=== PATIENT | male | born 1970 | race Caucasian/White ===

== ENCOUNTER → 2018-09-25 16:21 | Outpatient (CLI) | payer OTHER, SELFPAY ==
[2018-09-25 18:17] LABS: Prostate Specific Antigen Scrn 3.19 ng/mL (0.1-4.0)
== END ==
PROVIDERS: PCP Family Medicine; Visit Provider Nurse Practitioner
DX: R39.15 Urgency of urination (principal); R15.9 Full incontinence of feces
CPT/HCPCS: 36415; G0103

== ENCOUNTER → 2018-09-26 12:35 | Outpatient (CLI) | payer OTHER, SELFPAY | PROVIDERS: PCP Family Medicine; Visit Provider Nurse Practitioner | DX: R15.2 Fecal urgency (principal); R15.9 Full incontinence of feces; R39.15 Urgency of urination | CPT/HCPCS: 87045; 87177; 87899 ==

== ENCOUNTER → 2018-12-27 08:50 | Outpatient (CLI) | payer OTHER, SELFPAY | PROVIDERS: PCP Family Medicine; Visit Provider Physician Assistant | DX: J02.9 Acute pharyngitis, unspecified (principal); J35.1 Hypertrophy of tonsils | CPT/HCPCS: 87070 ==

== ENCOUNTER → 2019-10-03 07:39 | Outpatient (CLI) | payer OTHER, SELFPAY ==
--- NOTE | 2019-10-03 07:41 | DI.US.S_ITS ---
PROCEDURE: US SOFT TISSUE HEAD AND NECK INDICATIONS: LEFT SUPRACLAVICULAR LUMP X 10 YEARS TECHNIQUE: Real-time scanning was performed of the neck region of interest, with image documentation. COMPARISON: None. FINDINGS: In the area of palpable abnormality left supraclavicular region there is a 3.1 x 0.5 x 2.5 cm isoechoic mass. No internal vascularity and this is located within the subcutaneous soft tissues. IMPRESSION: Subcutaneous isoechoic mass in the region of left supraclavicular palpable abnormality, statistically this represents lipoma although recommend clinical followup and management. Dictated by: Mynor Anna M.D. on 10/03/2019 at 11:05 Approved by: Mynor Anna M.D. on 10/03/2019 at 11:06
== END ==
PROVIDERS: PCP Family Medicine; Referring Provider Surgery; Visit Provider Surgery
DX: R22.2 Localized swelling, mass and lump, trunk (principal)
CPT/HCPCS: 76536

== ENCOUNTER → 2020-01-06 08:30 | Outpatient (CLI) | payer OTHER, SELFPAY ==
[2020-01-07 08:42] LABS: COVID19 Sendout Not Detected (Not Detect)
== END ==
PROVIDERS: PCP Family Medicine; Visit Provider Physician Assistant
DX: Z01.818 Encounter for other preprocedural examination (principal)
CPT/HCPCS: 87635

== ENCOUNTER 2020-01-09 08:04 | Day surgery (SDC) | payer OTHER, SELFPAY ==
[2020-01-04 10:46] VITALS: BMI 24.5
[2020-01-09] VITALS (8 sets, daily range): BP systolic 84–110; BP diastolic 43–72; PULSE 62–78; RESP 9–16; TEMP 36.7–37.1; O2SAT 90–99; BMI 23.6
--- NOTE | 2020-01-09 | PATH_ITS ---
[facility] Accession Number: [id number] . 01 Material submitted: . skin - LEFT SUPRACLAVICULAR . 01 Clinical history: . FATTY MASS . 01 Diagnosis: Left Supraclavicular, Excision: Mature adipose tissue consistent with lipoma. MRV 01/11/2020 1521 Local . 01 Electronically signed: . Candi Mojica MD, Dermatopathologist NPI- [id number] . 01 Gross description: . Received in formalin, labeled left supraclavicular fatty mass, is one piece of lew adipose tissue measuring 2.9 x 0.7 x 0.6 cm. The tissue is inked, serially sectioned into six slices, and entirely submitted in cassettes A1 and A2 with three slices per cassette. ([id number]) /[facility] 01/10/2020 0243 Local . 01 Pathologist provided ICD-10: D17.9 . 01 CPT . 514625 Performed at: [address] [facility] [address], [place], [place] [id number] MD Lokesh Gusman MD Phone: [phone]
[2020-01-09] MEDS: LACTATED RINGERS 1,000 ML 42 ML IV (08:33)
--- NOTE | 2020-01-09 09:03 | PM.HP.1 ---
History of Present Illness History of Present Illness Date Patient Seen: 01/09/20 Time Patient Seen: 09:03 Chief complaint: [id number] EXCISION OF L SUPRACLAVICULAR MASS Narrative: This is a 49-year-old man with history of active smoking, who comes in with complaint of left supraclavicular pain, and a mass which has been enlarging over time. He believes the mass has been there for several years, but he feels that recently it has been enlarging such that it is restricting his movement of his shoulder and left arm. He denies any draining, bleeding, erythema, or warmth associated with the mass. He denies any perform neuropathy in the left arm, or any edema. He was sent for an US which revealed a 3cm discrete mass c/w a lipoma. ROS Review of systems is positive for pain in the left supraclavicular region. Thirteen system review is otherwise negative other than as mentioned below and in HPI. PE: GENERAL: Well groomed and cooperative. Appears stated age. Answers questions promptly and appropriately. Vital signs noted. HENT: Normocephalic, atraumatic. Hearing intact. Oral mucosa is pink and moist. EYES: Conjunctiva pink, sclera white, no periorbital swelling. CARDIOVASCULAR: Regular rate. No pedal edema. RESPIRATORY: Non-tachypneic, breathing comfortably on room air. GASTROINTESTINAL: Abdomen soft and non-distended GENITALURINARY: No flank tenderness. MUSCULOSKELETAL: Equal tone and mass bilaterally. 2 cm x 3 cm x 2 cm soft, partially mobile mass in the left supraclavicular SKIN: Warm, dry, soft, appropriate color for ethnicity. No other lesions, rashes, or wounds. NEURO: Alert and Oriented X 3. No gross sensory deficits, or cognitive issues. PSYCH: Appropriate affect and mood. Patient History Medical History Infected cat bite (Resolved) Family & Social History Tobacco & Substance use: Tobacco type cigarettes Smoking Status Current some day smoker Smoking packs per day 1 alcohol intake current alcohol intake frequency 3 or more drinks per day Substance Use Type marijuana Meds Home Medications and Allergies Home Medications Medication Instructions Recorded Confirmed Type No Known Home Medications 01/09/20 01/09/20 History Allergies Allergy/AdvReac Type Severity Reaction Status Date / Time bee pollen [BEE POLLEN] Allergy Unknown Verified 01/09/20 08:14 Exam Vital Signs (past 8 hours): - 01/09/20 08:25 Temperature 98.8 F Pulse Rate 74 Respiratory Rate 16 Blood Pressure 108/68 Pulse Oximetry 95 Oxygen Delivery Method Room Air Objective Imaging US shoulder: Radiologist's impression: FINDINGS: In the area of palpable abnormality left supraclavicular region there is a 3.1 x 0.5 x 2.5 cm isoechoic mass. No internal vascularity and this is located within the subcutaneous soft tissues. IMPRESSION: Subcutaneous isoechoic mass in the region of left supraclavicular palpable abnormality, statistically this represents lipoma although recommend clinical followup and management. Assessment & Plan Assessment & Plan narrative: Risks and benefits of left supraclavicular mass excision were discussed including risk of bleeding, infection, damage to nearby structures, nerve or vascular injury, injury to lung, unable to excise the entire structure due to nerve or vascular involvement, need for additional procedures, scarring, ongoing symptoms. The patient desires to proceed with excision of the mass. COVID-19 COVID-19 status: Negative Result date/Date tested (Pos, Neg/Pending): 01/06/20 Time Spent With Patient Time with patient: 15-24 minutes Quality VTE Deep Vein Thrombosis/Pulmonary Embolism Present on Admission: No
[2020-01-09] MEDS: CEFAZOLIN 2 GM/100 ML FROZ.PIGGY IV (09:10)
--- NOTE | 2020-01-09 09:28 | SUR.OPER ---
Supine on padded OR bed, head on pillow, arms secured on padded arm boards at <90 degrees abduction, legs uncrossed, safety belt at thigh, tape over blanket over lower legs.
--- NOTE | 2020-01-09 09:48 | P.OP_ITS ---
Operative Date/Time/Diagnoses Date of procedure: 01/09/20 Time of procedure: 09:48 Pre-op diagnosis: left supraclavicular mass Post-op diagnosis: same Procedure & Clinicians Procedure: Excision of 3cm left supraclavicular mass attached to left EJ Same procedure as scheduled: Yes Indications: Left shoulder pain and mass of unknown malignant potential Surgeon: Carline Ruffin Operative Notes Findings: 3cm x 2cm x2cm fatty mass adherent to left EJ Specimen(s): other (fatty supraclavicular mass 3 x 2 x 2 cm) Estimated Blood Loss (mL): 1 Blood products transfused: none Procedure in detail: The patient was brought into the OR, placed supine on the OR table, and appropriate preoperative antibiotics were given. Sequential compression devices were placed on both legs and turned on. General anesthesia was induced and the patient was intubated with an LMA by the anesthesiologist. The left shoulder and neck were prepped and draped sterilely with betadine. Local anesthetic was infiltrated into the skin and a 15 blade was used to make a 2 cm incision overlying the mass in the supraclavicular fossa. Dissection was carried down through the dermis using cautery sparingly due to fire risk. Once I reached the fatty mass, I began dissected it out using a fine hemostat. Medially, the mass was adherent to the external jugular vein. This was gently dissected free, and a small branch going into the mass was ligated with a 3-0 Vicryl tie, and divided with good hemostasis. Once the mass was entirely freed, it was passed o ff the field. The wound was checked for hemostasis. There was no sign of active bleeding. The skin was then closed with interrpted 3-0 Vicryl and running 4-0 Monocryl subcuticular stitch. The skin edges were sealed with Dermabond. The patient was awakened from anesthesia and extubated. He tolerated the procedure well. Needle, sponge and instrument counts were correct x 2. The patient was transferred to PACU in stable condition. Complications: none Post-operative Condition: stable Disposition: PACU
--- NOTE | 2020-01-09 10:58 | SUR.PHASEII ---
Discussed all d/c instructions with daughter. Patient given no prescriptions. All belongings returned to patient. Home in stable condition.
== END 2020-01-09 10:59 | disposition home or self-care (01) ==
PROVIDERS: PCP Family Medicine; Referring Provider Family Medicine; Visit Provider Surgery
PROC: (CPT 23071; principal; 2020-01-09 09:15)
DX: D17.1 Benign lipomatous neoplasm of skin and subcutaneous tissue of trunk (principal); F17.210 Nicotine dependence, cigarettes, uncomplicated
CPT/HCPCS: 23071; J0690; J1100; J2405; J2704; J3010

== ENCOUNTER 2020-03-03 23:24 | Emergency (ER) | payer OTHER, SELFPAY ==
[2020-03-03 23:25] VITALS: BP 133/86; PULSE 68; RESP 16; TEMP 36.8; O2SAT 98; BMI 24.3
--- NOTE | 2020-03-03 23:26 | DI.RAD.S_ITS ---
PROCEDURE: XR SHOULDER RT MIN 2V INDICATIONS: possible dislocation TECHNIQUE: 3 views of the shoulder were acquired. COMPARISON: None. FINDINGS: No fracture. Slight superior subluxation of the lateral clavicle relative to the acromion measuring approximately 1/3 shaft width. No definite AC joint space widening. The coracoclavicular interval appears normal. Glenohumeral alignment appears intact. IMPRESSION: Superior subluxation of the lateral clavicle relative to the acromion as above suggestive of acromioclavicular separation. Of note the AC and CC intervals appear normal. Further evaluation with dedicated acromioclavicular radiographs with and without weights could be performed as clinically warranted. Dictated by: Mynor Anna M.D. on 03/04/2020 at 8:53 Approved by: Mynor Anna M.D. on 03/04/2020 at 9:03
--- NOTE | 2020-03-03 23:42 | ED_ITS ---
HPI - General Adult General Chief complaint: Extremity Injury, Upper Stated complaint: somnjose manuel right shoulder is dislocated Time Seen by Provider: 03/03/20 23:26 Source: patient Mode of arrival: Ambulatory Limitations: no limitations History of Present Illness HPI narrative: Otherwise healthy 49-year-old male here for evaluation of right shoulder injury. Patient states that he tripped and fell landing on his right shoulder. He states that he thinks that he dislocated his shoulder. Has never had an injury to this shoulder in the past. Has not tried anything for his symptoms prior to arrival. Reports no other injuries from the event. Related Data Home Medications Medication Instructions Recorded Confirmed No Known Home Medications 01/09/20 01/24/20 Allergies Allergy/AdvReac Type Severity Reaction Status Date / Time bee pollen [BEE POLLEN] Allergy Unknown Verified 01/24/20 09:04 Review of Systems Constitutional Constitutional: Denies headache(s) ENT Ears, Nose, Mouth, and Throat: Denies headache(s) Musculoskeletal Musculoskeletal: Denies tingling Comments: Right shoulder pain Integumentary/Breasts Skin/Breast: Denies rash Neurologic Neurologic: Denies headache(s) and Denies tingling Hematologic/Lymphatic Hematologic/Lymphatic: Denies easy bleeding and Denies easy bruising Patient History Medical History Infected cat bite (Resolved) Social History Smoking Status: Current every day smoker quit status: considering quitting alcohol intake: current substance use type: marijuana Smoking Status: Current every day smoker tobacco type: cigarettes alcohol intake frequency: 3 or more drinks per day Alcohol type: beer Substance Use Type: does not use Exam Initial Vital Signs Initial Vital Signs: Vital Signs Temperature 98.3 F 03/03/20 23:25 Pulse Rate 68 03/03/20 23:25 Respiratory Rate 16 03/03/20 23:25 Blood Pressure 133/86 03/03/20 23:25 Pulse Oximetry 98 03/03/20 23:25 Const General: cooperative and comfortable Limitations: mental status not altered [facility] Head: normal to inspection and normocephalic Skin Lesions: no lesions Rashes: no rashes Neuro General: patient alert and patient awake Sensory Exam: no sensory deficits noted Extrem Other: Tenderness to palpation of the AC joint on the right. Right wrist right elbow right forearm right upper arm unremarkable. Patient can touch his left shoulder with his right hand. Can abduct and adduct his right shoulder. Psych Appearance: grossly normal and well kempt Course Orders Ordered: ED Orders 03/03/20 23:26 XR shoulder RT min 2V Stat Vital Signs Vital signs: Vital Signs - 8 hr 03/03/20 23:25 03/03/20 23:51 Temperature 98.3 F Pulse Rate 68 88 Respiratory Rate 16 14 Blood Pressure 133/86 127/83 Pulse Oximetry 98 100 Medical Decision Making Imaging Data Extremity x-ray #1: Attestation: I personally reviewed and interpreted this imaging study as follows: My Impression: Right AC separation, no fractures, no dislocation MDM Narrative Medical decision making narrative: Patient is neurovascularly intact. X-ray showed no dislocation or fracture. His exam and the x-rays are consistent with an AC separation. Attempted to discuss this with the patient do I think was reluctant to accept the fact that his shoulder was not dislocated however he was able to move his shoulder in a way that would make this extremely unlikely. Patient declined the offer for a sling. We did discuss ice and anti- inflammatories. Informed him that he needed to talk with his primary doctor about a referral to see physical therapy. He expressed understanding and agreement. Discharge Plan Departure Patient Disposition: Home Clinical Impression: Shoulder separation Discharge Date/Time: 03/03/20 23:51 Instructions: AC Joint Separation Activity Restrictions/Additional Instructions: Your shoulder is not dislocated. There were no fractures on the x-rays. You have what his called a shoulder. You have no restrictions on your activities. You can ice your shoulder as needed. Recommend that you contact your primary provider to discuss physical therapy. Return to the emergency department for any new or worsening symptoms Prescriptions: No Action No Known Home Medications RF: 0 Referrals: Cynthia Reyes MD [Primary Care Provider] -
[2020-03-03 23:51] VITALS: BP 127/83; PULSE 88; RESP 14; O2SAT 100
== END 2020-03-03 23:51 | disposition home or self-care (01) ==
PROVIDERS: Emergency Provider Emergency Medicine; PCP Family Medicine
DX: S43.006A Unspecified dislocation of unspecified shoulder joint, initial encounter (principal); W19.XXXA Unspecified fall, initial encounter
CPT/HCPCS: 73030; 99281; 99283

== ENCOUNTER → 2020-11-26 14:31 | Outpatient (CLI) | payer OTHER, SELFPAY ==
--- NOTE | 2020-11-26 | DI.RAD.S_ITS ---
PROCEDURE: XR KNEE RT 3V INDICATIONS: RIGHT KNEE PAIN TECHNIQUE: 3 views of the knee were acquired. COMPARISON: [facility], , KNEE 3V LEFT, 09/08/2007, 10:37. FINDINGS: Bones: No fractures or dislocations. No suspicious bony lesions. Soft tissues: No joint effusion. No suspicious soft tissue calcifications. IMPRESSION: Normal for age, source of current knee pain symptoms is not seen. Dictated by: Khris Lindsey M.D. on 11/26/2020 at 15:55 Approved by: Khris Lindsey M.D. on 11/26/2020 at 15:55
== END ==
PROVIDERS: PCP Family Medicine; Referring Provider Family Medicine; Visit Provider Family Medicine
DX: M25.561 Pain in right knee (principal)
CPT/HCPCS: 73562

== ENCOUNTER 2023-04-03 13:26 | Emergency (ER) | payer OTHER, SELFPAY ==
[2023-04-03] VITALS (16 sets, daily range): BP systolic 110–139; BP diastolic 70–83; PULSE 58–110; RESP 18–56; TEMP 36.5–36.7; O2SAT 90–97; BMI 24.7
--- NOTE | 2023-04-03 13:33 | DI.CT.S_ITS ---
PROCEDURE: CT HEAD/BRAIN WO CON INDICATIONS: fall TECHNIQUE: Noncontrast 4.5 mm thick angled axial sections acquired from the foramen magnum to the vertex, with coronal and sagittal reformats. For radiation dose reduction, the following was used: automated exposure control, adjustment of mA and/or kV according to patient size. COMPARISON: None. FINDINGS: Image quality: Excellent. CSF spaces: Basal cisterns are patent. No extra-axial fluid collections. Ventricles are normal in size and shape. Brain: No midline shift. No intracranial masses or hemorrhage. Rodriguez-white matter interface is normal. Skull and face: Calvarium and visualized facial bones are intact, without suspicious lesions. Sinuses: Visualized sinuses and mastoids are clear. IMPRESSION: No acute intracranial abnormality. Dictated by: Arpit Peterson M.D. on 04/03/2023 at 14:02 Approved by: Arpit Peterson M.D. on 04/03/2023 at 14:03
--- NOTE | 2023-04-03 13:33 | DI.CT.S_ITS ---
PROCEDURE: CT CERVICAL SPINE WO CON INDICATIONS: trauma TECHNIQUE: Noncontrast 3 mm thick sections acquired from the skull base to the T4 level. Sagittal and coronal reformats were then constructed. For radiation dose reduction, the following was used: automated exposure control, adjustment of mA and/or kV according to patient size. COMPARISON: None. FINDINGS: Image quality: Excellent. Bones: No fractures or dislocations. Visualized superior ribs are intact. Soft tissues: Prevertebral soft tissues are normal in thickness. No paravertebral hematomas. No apical pneumothoraces. IMPRESSION: No acute fracture. No osseous lesion. If symptoms and/or clinical suspicion for pathology persist, further assessment with MRI or bone scan may be helpful for further assessment. Dictated by: Arpit Peterson M.D. on 04/03/2023 at 14:01 Approved by: Arpit Peterson M.D. on 04/03/2023 at 14:02
--- NOTE | 2023-04-03 13:33 | DI.CT.S_ITS ---
PROCEDURE: CT CHEST ABD PEL W CON INDICATIONS: trauma with R chest injury TECHNIQUE: After the administration of intravenous contrast, 5 mm thick sections acquired from the lung apices to the symphysis. 2.5 mm thick coronal and sagittal reformats were acquired. Additional 7 mm thick coronal maximum intensity projection (MIP) reformats acquired through the lungs. Optional 10-minute delayed imaging may be performed from the kidneys to the bladder. For radiation dose reduction, the following was used: automated exposure control, adjustment of mA and/or kV according to patient size. COMPARISON: None. FINDINGS: Image quality: Excellent. CHEST: Lungs: No pulmonary contusions or lacerations. No acute airspace opacities. No hemothorax. Trace amount of gas projecting over the right anteroinferior pleural space adjacent to the right hepatic lobe.. Central and peripheral airways appear patent and normal in caliber. Mediastinum: No mediastinal hematomas. Heart size is normal. No pericardial effusion. Thoracic aorta and pulmonary arteries demonstrate normal size and enhancement. No mediastinal or hilar adenopathy. Esophagus is normal in caliber. No hiatal hernia. Chest wall: Small amount of subcutaneous emphysema within the right posterolateral chest wall. Mildly displaced right posterior 10th rib fracture.. No subcutaneous emphysema. No axillary or supraclavicular adenopathy. Thyroid gland is within normal limits exam. ABDOMEN: Solid organs: Liver is normal in size and enhancement, without lacerations. Gallbladder is within normal limits. Biliary system is non-dilated. Pancreas enhances normally, without transection. Spleen is normal in size and enhancement, without lacerations. No adrenal hematomas. Both kidneys enhance normally, without hydronephrosis or lacerations. Peritoneum and bowel: No free fluid . Moderate gastric distension. Unenhanced bowel loops demonstrate otherwise normal wall thickness and caliber. Nodes and vessels: No retroperitoneal or mesenteric adenopathy. Aorta and inferior vena cava are normal in size and enhancement. Miscellaneous: No ventral hernias. PELVIS: Genitourinary: Bladder wall thickness is normal. Miscellaneous: No inguinal hernias or adenopathy. Bones: Markedly displaced right inferior pubic ramus fracture. Moderately displaced comminuted right superior pubic ramus fracture. Moderately displaced comminuted fracture of the right iliac wing. IMPRESSION: 1. Trace amount of gas adjacent to the liver, which appears to be in the pleural space, consistent with a trace pneumothorax. Continued clinical follow-up is recommended to exclude bowel injury. Findings discussed with Dr. Clayton on 04/03/2023 at 14:05 hours. 2. Moderate gastric distension. 3. Pelvic fractures. 4. Right rib fracture. Dictated by: Arpit Peterson M.D. on 04/03/2023 at 14:03 Approved by: Arpit Peterson M.D. on 04/03/2023 at 14:10
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
[2023-04-03 13:39] LABS: Add Manual Diff / Slide Review NO; Basophils Absolute Auto 100 /uL (0-100); Basophils Percent Auto 0.6 % (0-2); Eosinophils Absolute Auto 100 /uL (0-450); Eosinophils Percent Auto 1.2 % (2-4); Hematocrit 40.3 % (41-53); Hemoglobin 13.7 g/dL (13.5-17.5); Lymphocytes Absolute Auto 2700 /uL (1100-4500); Lymphocytes Percent Auto 30.1 % (25-40); Mean Corpuscular HGB Conc 33.8 % (30-36); Mean Corpuscular Hemoglobin 32.3 PG (26-34); Mean Corpuscular Volume 95.4 fL (80-100); Monocytes Absolute Auto 700 /uL (0-900); Monocytes Percent Auto 7.4 % (3-14); Neutrophils Absolute Auto 5400 /uL (1500-7000); Neutrophils Percent Auto 60.7 % (50-75); Platelet Count 369 X10^3/uL (150-400); Red Blood Cell Count 4.23 X10^6/uL (4.5-5.9); Red Cell Distribution Width 12.9 % (11.6-14.8); White Blood Cell Count 8.9 X10^3/uL (4.5-11.0)
[2023-04-03] MEDS: fentaNYL 100 MCG/2 ML INJ 50 MCG IV (13:44)
[2023-04-03 13:53] LABS: Alanine Aminotransferase 75 IU/L (<50); Albumin 3.8 g/dL (3.5-5.0); Albumin Globulin Ratio 1.3 (1.0-2.8); Alkaline Phosphatase 59 U/L (38-126); Aspartate Aminotransferase 172 IU/L (17-59); BUN Creatinine Ratio 9.6 (6-22); Bilirubin Total 0.7 mg/dL (0.2-1.3); Blood Urea Nitrogen 12 mg/dL (9-20); Calcium 8.8 mg/dL (8.4-10.2); Carbon Dioxide 25 mmol/L (22-32); Chloride 103 mmol/L (98-107); Estimated Glomerular Filt Rate > 60 mL/min (>60); Ethanol (ETOH) < 10 mg/dL; Glucose 139 mg/dL (70-100); HEMOLYSIS 26 (0-50); Lipase 321 U/L (23-300); Potassium 3.9 mmol/L (3.4-5.1); Sodium 136 mmol/L (137-145); Total Protein 6.8 g/dL (6.3-8.2)
[2023-04-03] MEDS: SODIUM CHLORIDE 0.9% 1,000 ML 125 ML IV (13:57)
[2023-04-03] MEDS: HYDROMORPHONE 1 MG INJ IV ×2 (13:57→14:40)
[2023-04-03] MEDS: ONDANSETRON 4 MG/2 ML INJ IV (14:19)
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
== END 2023-04-03 15:00 | disposition short-term general hospital (02) ==
PROVIDERS: Emergency Provider Emergency Medicine; PCP Family Medicine
DX: S22.31XA Fracture of one rib, right side, initial encounter for closed fracture (principal); S32.511A Fracture of superior rim of right pubis, initial encounter for closed fracture; S32.591A Other specified fracture of right pubis, initial encounter for closed fracture; S32.399A Other fracture of unspecified ilium, initial encounter for closed fracture; J93.9 Pneumothorax, unspecified; S30.811A Abrasion of abdominal wall, initial encounter; S20.311A Abrasion of right front wall of thorax, initial encounter; S00.81XA Abrasion of other part of head, initial encounter; W14.XXXA Fall from tree, initial encounter
CPT/HCPCS: 36415; 70450; 71260; 72125; 74177; 80053; 80320; 83690; 85025; 96374; 96375; 96376; 99285; 99291; G0390; J1170; J2405; J3010; Q9967

== ENCOUNTER 2023-04-13 02:35 | Emergency (ER) | payer OTHER, MEDICAID, SELFPAY ==
[2023-04-13] VITALS (7 sets, daily range): BP systolic 119–138; BP diastolic 59–77; PULSE 93–108; RESP 16; TEMP 36.8; O2SAT 84–100; BMI 26.6
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
--- NOTE | 2023-04-13 02:57 | DI.CT.S_ITS ---
PROCEDURE: CT PEL WO CON INDICATIONS: recent trauma, fractures, surgical pins, now pain TECHNIQUE: Noncontrast 3 mm axial sections acquired through the bony pelvis, with coronal and sagittal reformatting. COMPARISON: [facility], CT, CT CHEST ABD PEL W CON, 04/03/2023, 13:39. FINDINGS: Image quality: Excellent. Evaluation for vascular injuries is limited without IV contrast. Bones: Multiple prior fractures in the right pelvis with screw fixation. There is improved alignment of the right pubic ramus post fixation. The right inferior pubic ramus fracture with displacement is not significantly changed. Trans sacral screw. Soft tissues: There is increased density in the right gluteus medius measuring approximately 7.4 x 6.2 x 2.1 cm, estimated volume of 50 cc. There is asymmetric enlargement of the right gluteus and iliacus musculature. musculature, increased. Mild subcutaneous edema adjacent to the right hip, increased. Anterior right skin staple line. No free fluid identified in the pelvis. No dilated loops of bowel. The appendix is not distended. Bladder is unremarkable. IMPRESSION: Right gluteus medius intramuscular hematoma measuring approximately 7.4 cm in greatest dimension in approximately 50 cc. Interval pelvic screw fixation. No free fluid in the pelvis seen. This report is concordant with the overnight preliminary interpretation. Dictated by: Vin Allen M.D. on 04/13/2023 at 8:49 Approved by: Vin Allen M.D. on 04/13/2023 at 9:04
[2023-04-13] MEDS: HYDROCODONE/ACET 5/325 PREPACK 1 BOTTLE MISC (04:48)
--- NOTE | 2023-04-13 05:06 | PC.NURSE ---
difficulty getting pt to leave after dc, after receiving instructions pt fell back asleep on stretcher, reminded pt he was dc, pt took his time getting up, assistance was offered but pt refused, after getting up pt started cussing at staff, while leaving pt stated I don't know why I come here you just send everybody to [facility] because you are incompetent and cant do anything
== END 2023-04-13 05:02 | disposition home or self-care (01) ==
PROVIDERS: Emergency Provider Emergency Medicine; PCP Family Medicine
DX: M25.551 Pain in right hip (principal); W14.XXXD Fall from tree, subsequent encounter
CPT/HCPCS: 72192; 99281; 99284